=== PATIENT | female | born 1965 | race American Indian/Alaskan Native ===

== ENCOUNTER 2017-09-30 11:27 | Outpatient (CLI) | payer OTHER ==
[2017-09-30] MEDS: PROVENTIL IH ONE (12:47)
== END 2017-09-30 11:28 | disposition home or self-care (01) ==
LOC: PF 11:27
PROVIDERS: ATTEND Internal Medicine
DX: J45.909 Unspecified asthma, uncomplicated (principal); I50.9 Heart failure, unspecified; F41.9 Anxiety disorder, unspecified; D86.9 Sarcoidosis, unspecified; S09.90XA Unspecified injury of head, initial encounter; H53.9 Unspecified visual disturbance; Z87.891 Personal history of nicotine dependence; X58.XXXA Exposure to other specified factors, initial encounter; Y93.89 Activity, other specified; Y92.89 Other specified places as the place of occurrence of the external cause; Y99.8 Other external cause status
CPT/HCPCS: 94060; 94640; 94729